=== PATIENT | male | born 1970 | race Two or more races ===

== ENCOUNTER 2025-01-01 18:16 | Emergency (ER) | payer OTHER ==
[~2025-01-01] VITALS: Ht 172.7 cm; Wt 74.8 kg
[2025-01-01 19:39] VITALS: BP 144/83; TEMP 98.2; O2SAT 98
[2025-01-01] MEDS ORDERED: TDAP [DIPH/PERTUSSIS/TET] 0.5 ML VIAL IM ONE (20:01)
[2025-01-01] MEDS: TDAP [DIPH/PERTUSSIS/TET] 0.5 ML VIAL IM ONE (20:04)
== END 2025-01-01 20:53 | disposition home or self-care (01) ==
LOC: ER 18:19
DX: S81.811A Laceration without foreign body, right lower leg, initial encounter (principal); W29.1XXA Contact with electric knife, initial encounter; Y93.89 Activity, other specified; Y92.89 Other specified places as the place of occurrence of the external cause; Y99.8 Other external cause status
CPT/HCPCS: 90715

== ENCOUNTER 2025-01-13 15:15 | Emergency (ER) | payer OTHER ==
[~2025-01-13] VITALS: Ht 175.3 cm; Wt 74.8 kg
[2025-01-13 15:44] VITALS: BP 122/66; TEMP 98; O2SAT 98
== END 2025-01-13 16:21 | disposition home or self-care (01) ==
LOC: ER 15:20
DX: S81.811D Laceration without foreign body, right lower leg, subsequent encounter (principal); Z48.02 Encounter for removal of sutures; X58.XXXD Exposure to other specified factors, subsequent encounter